=== PATIENT | female | born 2000 ===

== ENCOUNTER 2018-11-05 15:21 | Emergency (ER) | payer OTHER ==
--- NOTE | 2018-11-05 15:25 | UC ---
Skin Complaint HPI - HPI Summary HPI Summary: 18 yo female presents accompanied by mother s/p fall. She tells me that she was walking and tripped - fell forward onto her hands and knees. Her right thumbnail was avulsed in the process. She sustained an abrasion to her knee and hands. She came directly to . Has not taken anything OTC for her discomfort. She is most concerned that her fingernail will not grow back. - History of Current Complaint Time Seen by Provider: 11/05/18 15:22 Stated Complaint: FINGER PAIN Hx Obtained From: Patient, Family/Hostess Host Onset/Duration: Sudden Onset Timing: Constant Onset Severity: Severe Current Severity: Severe Pain Intensity: 8 Pain Scale Used: 0-10 Numeric - Allergy/Home Medications Allergies/Adverse Reactions: Allergies Allergy/AdvReac Type Severity Reaction Status Date / Time red dye Allergy Rash Verified 11/05/18 15:31 Home Medications: Home Medications Albuterol HFA INHALER* [Ventolin HFA Inhaler*] 1 puff INH Q4H PRN 11/05/18 [ History Confirmed 11/05/18] PMH/Surg Hx/FS Hx/Imm Hx - Additional Past Medical History Additional PMH: Asthma - Surgical History Surgical History: None - Family History Known Family History: Positive: None - Social History Occupation: Student Lives: Dormitory/Roommates Alcohol Use: Occasionally Substance Use Type: None Smoking Status (MU): Never Smoked Tobacco Review of Systems All Other Systems Reviewed And Are Negative: Yes Constitutional: Positive: Negative Skin: Positive: Other - Fingernail injury Respiratory: Positive: Negative Cardiovascular: Positive: Negative Neurovascular: Positive: Negative Neurological: Positive: Negative Psychological: Positive: Negative Physical Exam - Summary Physical Exam Summary: GENERAL: NAD. WDWN. No pain distress. SKIN: RIGHT thumb: Complete nail avulsion. With healing granulation tissue. Left MCPs with superficial abrasions. Right volar wrist with superficial abrasion. CHEST: No accessory muscle use. Breathing comfortably and in no distress. CV: Pulses intact. Cap refill <2seconds MSK: RIGHT THUMB: FROM at MCP and IP joint, but has significant pain during movement. NEURO: Alert. PSYCH: Age appropriate behavior. Triage Information Reviewed: Yes Vital Signs: Vital Signs: Temp Pulse Resp BP Pulse Ox 98.2 F 86 18 116/78 99 11/05/18 15:23 11/05/18 15:23 11/05/18 15:23 11/05/18 15:23 11/05/18 15:23 Vital Signs Reviewed: Yes Course/Dx - Course Course Of Treatment: XR: IMPRESSION: NO EVIDENCE FOR FRACTURE. The procedure was explained to the pt and all questions were answered. A time out was performed, witnessed, and signed. 1mL of bupivacaine was administered as a digital block. The tissue was bandaged with xeroform vaseline gauze and tubegauze. Advised to keep this bandage intact and in place for the next 5 days before removing and replacing with band-aid. tdap is up to date - Diagnoses Provider Diagnosis: Nail avulsion, finger, Abrasion hand Discharge - Sign-Out/Discharge Documenting (check all that apply): Patient Departure All imaging exams completed and their final reports reviewed: No Studies - Discharge Plan Condition: Stable Disposition: HOME Patient Education Materials: Nail Avulsion (ED) Referrals: No Primary Care Phys,NOPCP [Primary Care Provider] - Additional Instructions: If you develop a fever, shortness of breath, chest pain, new or worsening symptoms - please call your PCP or go to the ED immediately. 1) Please keep the finger/nail bandaged as we have done for you in the clinic for the next 5 days. Do not get this bandage wet or soiled. 2) After 5 days, you may remove the bandage and apply a simple band-aid. If you are uncomfortable doing this, please go to a local urgent care in [place] for a wound check and they can assist you. 3) The nail will likely regrow, but this could take around 6 months. - Billing Disposition and Condition Condition: STABLE Disposition: Home
[2018-11-05 15:31] VITALS: BP 116/78
[2018-11-05] MEDS ORDERED: Bupivacaine 0.25% SDV PF* 10 ML VIAL INJ ONE (15:44)
== END 2018-11-05 17:25 | disposition home or self-care (01) ==
LOC: UCEAST 15:21
DX: S61.101A Unspecified open wound of right thumb with damage to nail, initial encounter (principal); S60.512A Abrasion of left hand, initial encounter; S60.811A Abrasion of right wrist, initial encounter; W01.0XXA Fall on same level from slipping, tripping and stumbling without subsequent striking against object, initial encounter; Y93.01 Activity, walking, marching and hiking; Y92.9 Unspecified place or not applicable; J45.909 Unspecified asthma, uncomplicated
CPT/HCPCS: 99202; G0463; J3490